=== PATIENT | female | born 1945 | race Caucasian/White ===

== ENCOUNTER 2017-11-19 16:55 | Emergency (ER) | payer OTHER, BC ==
[~2017-11-19] VITALS: Ht 172.7 cm; Wt 86.2 kg
[2017-11-19 17:11] VITALS: BP 97/39
--- NOTE | 2017-11-19 17:11 | NUR ---
PT W/C ASSISTED TO BED 4.
--- NOTE | 2017-11-19 17:22 | NUR ---
72 YO F BIB DTR W/ C/O LOWER SACRAL COCCYX TENDERNESS AND GENERALIZED LUMBAR TENDERNESS THAT IS SHARP, THORBBING 04/24 R/T A FALL THAT OCCURED AT [place] ON Sunday11/17/17. PT CAN AMBULATE W/ STEADY GAIT BUT HAS EXCRUTIATING PAIN AT THIS TIME. THERE IS NO APPARENT BRUISING TO THE SITE, BUT PT REPORTS THAT SHE IS HAVING SOME URINARY DIFFICULTIES SINCE THE FALL. PT DENIES HITTING HEAD, NO KO. PT LANDED ON HER BUTTOCKS. PT A&O X 4. GCS 15. CMS INTACT. RR EVEN AND UNLABORED. LUNGS BILAT CLEAR. ABD SOFT, NON-TENDER. ER MD CASON NOTIFIED. PT NEEDS MET. SAFETY PRECAUTIONOS IN PLACE. WILL CONTINUE TO MONITOR.
[2017-11-19] MEDS ORDERED: KETOROLAC 30 MG/ML VIAL IM ONE (17:55)
[2017-11-19] MEDS ORDERED: ONDANSETRON 4 MG ODT PO ONE (17:55)
[2017-11-19] MEDS ORDERED: ACETAMINOPHEN/CODEINE 300/30MG 1 TAB PO ONE (17:55)
--- NOTE | 2017-11-19 18:19 | NUR ---
LAB AT BEDSIDE AT THIS TIME.
[2017-11-19 18:35] LABS: BASOPHILS % (AUTO) 0.4 % (0.0-2.0); EOSINOPHILS # (AUTO) 0.2 K/uL (0-0.4); EOSINOPHILS % (AUTO) 2.6 % (0.0-4.0); HEMATOCRIT 40.8 % (36-48); HEMOGLOBIN 13.4 g/dL (12.0-16.0); LYMPHOCYTES % (AUTO) 12.7 % (20.5-51.1); MEAN CORPUSCULAR HEMOGLOBIN 29 pg (27-31); MEAN CORPUSCULAR HGB CONC 33 g/dL (33-37); MEAN CORPUSCULAR VOLUME 87.9 fL (80-94); MONOCYTES # (AUTO) 0.5 K/uL (0.8-1.0); MONOCYTES % (AUTO) 6.3 % (1.7-9.3); NEUTROPHILS # (AUTO) 6.2 K/uL (1.8-7.7); PLATELET COUNT (AUTO) 214 K/uL (140-450); RED BLOOD CELL COUNT(AUTO) 4.64 MIL/uL (4.20-5.40); RED CELL DISTRIBUTION WIDTH 13.3 % (11.6-13.7); WHITE BLOOD COUNT (AUTO) 7.9 K/uL (4.8-10.8)
[2017-11-19 18:37] LABS: ANION GAP 12.3 (8-16); CARBON DIOXIDE 29.2 mmol/L (21-32); CHLORIDE 101 mmol/L (98-107); CREATININE 0.9 mg/dL (0.6-1.3); GLUCOSE 125 mg/dL (74-106); POTASSIUM 3.5 mmol/L (3.5-5.1); SODIUM SERUM 139 mmol/L (136-145); UREA NITROGEN, BLOOD 13 mg/dL (7-18)
--- NOTE | 2017-11-19 18:45 | NUR ---
PT TAKEN TO CT AT THIS TIME.
[2017-11-19 18:57] LABS: PROTHROMBIN TIME 10.3 secs (10.8-13.4)
--- NOTE | 2017-11-19 19:07 | NUR ---
Pt report given to inga HOLGUIN. Transfer of care at this time.
--- NOTE | 2017-11-19 19:10 | NUR ---
RECEIVED REPORT FROM AM NURSE. PT BACK FROM CT, PT RESTING COMFORTABLY. RR EVEN AND UNLABORED. ALL NEEDS MET.
--- NOTE | 2017-11-19 20:08 | NUR ---
PT RESTING COMFORTABLY, REPORTS TOLERABLE PAIN, RR EVEN AND UNLABORED. ALL NEEDS MET.
[2017-11-19 20:45] VITALS: BP 122/59
--- NOTE | 2017-11-19 20:45 | NUR ---
Patient discharged with v/s stable. Written and verbal after care instructions given and explained. Patient alert, oriented and verbalized understanding of instructions. Wheel Chair Assisted with to car. All questions addressed prior to discharge. ID band removed. Patient advised to follow up with PMD. Rx of IBUPROFEN given. Patient educated on indication of medication including possible reaction and side effects. Opportunity to ask questions provided and answered.
== END 2017-11-19 20:45 | disposition home or self-care (01) ==
LOC: MED 16:55
DX: S32.039A Unspecified fracture of third lumbar vertebra, initial encounter for closed fracture (principal); Z90.710 Acquired absence of both cervix and uterus; W19.XXXA Unspecified fall, initial encounter; Y93.89 Activity, other specified; Y92.89 Other specified places as the place of occurrence of the external cause; Y99.8 Other external cause status
CPT/HCPCS: 36415; 72131; 74176; 80048; 81002; 85025; 85610; 85730; 86886; 86900; 86901; 96372; 99285; J1885; S0119